=== PATIENT | male | born 1980 | race Caucasian/White ===

== ENCOUNTER 2016-10-24 15:17 | Emergency (ER) | payer MEDICAID ==
[~2016-10-24] VITALS: Ht 175.3 cm; Wt 87.1 kg
[2016-10-24 15:17] VITALS: BP 122/82
[2016-10-24] MEDS ORDERED: SULFAMETH/TRIMETH 800/160 MG 1 UDTAB TABLET PO STA (15:27)
[2016-10-24] MEDS ORDERED: LIDOCAINE 2%-EPI 1:100,000 30 ML VIAL TP STA (15:27)
[2016-10-24] MEDS ORDERED: CEPHALEXIN MONOHYDRATE 500 MG CAPSULE PO STA (15:27)
[2016-10-24] MEDS ORDERED: LIDOCAINE 2%-EPI 1:200,000 20 ML VIAL IJ ONE (15:39)
[2016-10-24] MEDS ORDERED: CEPHALEXIN MONOHYDRATE 500 MG CAPSULE PO ONE (15:39)
[2016-10-24] MEDS ORDERED: SULFAMETH/TRIMETH 800/160 MG 1 UDTAB TABLET PO ONE (15:39)
== END 2016-10-24 16:09 | disposition home or self-care (01) ==
LOC: ER 15:23
DX: L02.413 Cutaneous abscess of right upper limb (principal); L03.113 Cellulitis of right upper limb; M54.5 Low back pain; G89.29 Other chronic pain; B19.20 Unspecified viral hepatitis C without hepatic coma
CPT/HCPCS: 10060; 99283; A4606; A6407; J3490; Z7610